=== PATIENT | female | born 1965 | race Caucasian/White ===

== ENCOUNTER 2025-04-18 18:38 | Emergency (ER) | payer BC, SELFPAY ==
[2025-04-18 18:41] VITALS: BP 168/119
[2025-04-18 19:05] LABS: % Basophils 0.4 % (0-2); % Eosinophils 1.2 % (0-6); % Immature Granulocytes 0.5 % (0-0.5); % Lymphocytes 13.8 % (20.5-51.1); % Monocytes 5.8 % (1.7-9.3); % Neutrophils 78.3 % (42.2-75.2); Absolute Basophils 0.1 10^3/uL (0-0.2); Absolute Eosinophils 0.1 10^3/uL (0-0.7); Absolute Immature Granulocytes 0.1 10^3/uL (0-0.05); Absolute Lymphocytes 1.6 10^3/uL (1.2-3.4); Absolute Monocytes 0.7 10^3/uL (0.1-0.6); Absolute Neutrophils 8.9 10^3/uL (1.4-6.5); Hematocrit 45.6 % (37.0-47.0); Hemoglobin 14.8 g/dL (12.0-16.0); Mean Corp Hgb Conc. 32.5 g/dL (33.0-37.0); Mean Corpuscular Hgb 28.1 pg (27.0-31.0); Mean Corpuscular Volume 86.5 fL (81.0-99.0); Mean Platelet Volume 9.7 fL (7.4-10.4); Nucleated Red Blood Cells % 0 %; Platelet Count 346 10^3/uL (130-400); Red Blood Cell Count 5.27 10^6/uL (4.20-5.40); White Blood Cell Count 11.3 10^3/uL (4.8-10.8)
[2025-04-18 19:18] LABS: COVID-19 Antigen Negative (Negative)
[2025-04-18 19:26] LABS: ALT (SGPT) 24 U/L (0-35); AST (SGOT) 22 U/L (14-36); Albumin 4.4 g/dl (3.5-5.0); Alkaline Phosphatase 116 U/L (38-126); Blood Urea Nitrogen 13 mg/dl (7-17); Carbon Dioxide 28 mmol/L (22-30); Chloride 103 mmol/L (98-107); Glucose 271 mg/dl (70-99); Potassium 3.9 mmol/L (3.5-5.1); Sodium 142 mmol/L (135-145); Total Bilirubin 0.5 mg/dl (0.2-1.3); Total Protein 7.4 g/dl (6.3-8.2); eGFR > 60.00
[2025-04-18 21:10] VITALS: BP 149/100
[2025-04-18 21:44] VITALS: BP 174/100
[2025-04-18 21:53] VITALS: BMI 29.1
[2025-04-18] MEDS: COZAAR 50 MG PO (22:42)
[2025-04-18] MEDS: TYLENOL 1000 MG PO (22:54)
[2025-04-18 23:00] VITALS: BP 170/98
[2025-04-18 23:09] LABS: TSH Reflex To Free T4 1.67 uIU/ml (0.47-4.68)
[2025-04-18] MEDS: AUGMENTIN 875 MG/125 MG 1 TABLET PO (23:36)
--- NOTE | 2025-04-19 00:06 | ED.GENMED ---
History of Present Illness
General
Chief Complaint: Blood Pressure Problem
Source: patient
Exam Limitations: none
Time Seen by Provider: 04/18/25 21:57
Nursing documentation reviewed up to this point in time: agreed with
History of Present Illness
History of Present Illness:
Patient to ED with complaint of cough, fatigue, headache. She was seen at 2 days ago and placed on zpack for her symtpoms but states med is not helping. SHe was also told her BP was elevated. She has a history of HtN but states she stopped all
her medications approx 3 mos ago because she was tired of taking her meds. Brought to ED by family for eval.
Past History
Past History
ED Past Medical History: GERD, HTN, Hypercholesterolemia and Hypothyroidism
ED Past Surgical History:
Social History
Tobacco: Smoker
Alcohol: None
Drug: None
Personal: Other ( )
Living: with family
Employment: Employed
Review of Systems
Review of Systems
Allergies reviewed?: Yes
All Other Systems: ROS reviewed and negative except as documented in HPI and ROS
Constitutional: Reports fatigue
EENT: Reports other (right ear pain)
Respiratory: Reports cough
Cardiac: Reports no symptoms
ABD/GI: Reports no symptoms
: Reports no symptoms
Musculoskeletal: Reports no symptoms
Skin: Reports no symptoms
Neurological: Reports no symptoms
Psychiatric: Reports no symptoms
Phy Exam
General Physical Exam
General Presentation: mild distress
General age: appears stated age
General Skin: warm and dry
General Habitus: normal
General Mental: alert
Cardiovascular Exam
Cardiovascular Exam: regular rate/rhythm and no edema
Pulmonary Exam
Pulmonary Exam: lungs clear and chest non tender
Gastrointestinal Exam
Gastrointestinal Exam: normal bowel sounds, non tender and soft
Musculoskeletal Exam
Musculoskeletal Exam: full ROM and neuro vasc intact
Skin Exam
Skin Exam: normal color, warm/dry and no rash
Psychiatric Exam
Psychiatric Exam: normal mood/affect
Course
Orders/Labs/Results
Orders:
Orders
04/18/25 18:43
Electrocardiogram (*1) Urgent
Reason for Study: Hypertension, Benign
EKG- Treatment ONCE
04/18/25 18:54
COVID-19 Antigen Urgent
Source: Nasal Swab
Complete Blood Count/With Diff Urgent
Comprehensive Metabolic Panel Urgent
TSH Reflex To Free T4 Urgent
Comment: ADD ON
Influenza A+B Rapid Molecular Urgent
MARYANA Source: Nasal Swab
Specimen Description:
04/18/25 22:04
Add On- LAB Urgent
Comments:: not taking ordered medication
Tests Added?: TSH with reflex to T4
04/18/25 22:07
Chest [CR Chest - 2 Views ] Urgent
Comment:
Reason For Exam: cough
04/18/25 22:30
Losartan [Cozaar] 50 mg PO NOW STA
04/18/25 22:48
Acetaminophen [Tylenol] 1,000 mg PO NOW STA
04/18/25 23:33
Amoxicillin 875 mg/Clav 125 mg [Augmentin 875 mg/125 mg] 1 tablet PO NOW STA
Abnormal Lab Results
04/18/25
18:54
WBC 11.3 H 10^3/uL
(4.8-10.8)
MCHC 32.5 L g/dL
(33.0-37.0)
Abs Immat Gran (auto) 0.1 H 10^3/uL
(0-0.05)
Absolute Neuts (auto) 8.9 H 10^3/uL
(1.4-6.5)
Absolute Monos (auto) 0.7 H 10^3/uL
(0.1-0.6)
Neutrophils % 78.3 H %
(42.2-75.2)
Lymphocytes % 13.8 L %
(20.5-51.1)
Glucose 271 H mg/dl
(70-99)
04/18/25 18:54
04/18/25 18:54
Vital Signs
Initial and Last Documented VS:
Initial Vital Signs
Temp Pulse Resp BP Pulse Ox
99.1 F 110 16 168/119 96
04/18/25 18:41 04/18/25 18:41 04/18/25 18:41 04/18/25 18:41 04/18/25 18:41
Last Documented Vital Signs
Temp Pulse Resp BP Pulse Ox
99.1 F 89 19 170/98 94
04/18/25 18:41 04/18/25 22:45 04/18/25 22:45 04/18/25 23:00 04/18/25 23:30
*Radiology
Radiology exam reviewed: preliminary read by ED provider (questionable LLL pneumonia)
*EKG
Interpretation: normal
Rate: normal
Rhythm: sinus
*Critical Care Note
Total Time (30-74mins, 75-104mins- exclusive of procedures): Not Applicable
ED Attending Note
-
Portions of this chart may have been created with voice recognition software.� Occasional wrong word or��sound alike� substitutions may have occurred due to the inherent limitations of voice recognition software.
Discharge Plan
Departure
Patient Disposition: Home (Routine Discharge)
Date of Disposition: 04/18/25
Time of Disposition: 23:29
Patient with high blood pressure during this ER visit?: No
Condition: Good
Covid-19: Not Applicable
Discharge Problem:
Pneumonia, Hypertension
Instructions: High Blood Pressure (DC), Pneumonia
Prescriptions:
New
amoxicillin-pot clavulanate 875-125 mg tablet
1 tab PO BID Qty: 20 0RF
doxycycline hyclate 100 mg capsule
100 mg PO BID Qty: 10 0RF
No Action
Cary
1 tab PO DAILY
Blood Pressure Med
1 tab PO DAILY
Patient Comments:
Pt. does not know the name of this med
Fish Oil
1 tab PO DAILY
Referrals:
[facility] [Outside]
NONE,* [Family Provider, Internal Medicine]
Stand Alone Forms: Return to Work
Interventions
Interventions:
*Risk Screen - Suicide Last Done: 04/18/25 18:42
*General Assessment Last Done: 04/18/25 21:54
*Neglect/Abuse Screening Last Done: 04/18/25 18:42
*ED- Fall Risk Assessment Last Done: 04/18/25 21:54
*ED COVID-19 Vaccine History Last Done: 04/18/25 21:54
*Nursing Disposition Last Done: 04/18/25 23:51
ED- Cardiac Assessment Last Done: 04/18/25 21:54
ED- Neurological Assessment Last Done: 04/18/25 21:54
ED- Pulmonary Assessment Last Done: 04/18/25 21:54
Discharge Date and Time
Discharge Date/Time: 04/18/25 23:52
Print Language: GERMAN
== END 2025-04-18 23:52 | disposition home or self-care (01) ==
LOC: EMR 18:38
PROVIDERS: Emergency Medicine; EMERGENCY PHYSICIAN Student in an Organized Health Care Education/Training Program
DX: J18.9 Pneumonia, unspecified organism (principal); I10 Essential (primary) hypertension; E03.9 Hypothyroidism, unspecified; E78.00 Pure hypercholesterolemia, unspecified; F17.200 Nicotine dependence, unspecified, uncomplicated; Z11.52 Encounter for screening for COVID-19
CPT/HCPCS: 99285; 71046; 80053; 84443; 85025; 87502; 87811; 93005

== ENCOUNTER 2025-04-22 19:26 | Emergency (ER) | payer BC, SELFPAY ==
[2025-04-22 19:37] VITALS: BP 128/86
[2025-04-22 19:50] LABS: % Basophils 0.5 % (0-2); % Eosinophils 1.6 % (0-6); % Immature Granulocytes 1.4 % (0-0.5); % Lymphocytes 19.6 % (20.5-51.1); % Monocytes 5.2 % (1.7-9.3); % Neutrophils 71.7 % (42.2-75.2); Absolute Basophils 0.1 10^3/uL (0-0.2); Absolute Eosinophils 0.2 10^3/uL (0-0.7); Absolute Immature Granulocytes 0.2 10^3/uL (0-0.05); Absolute Lymphocytes 2.4 10^3/uL (1.2-3.4); Absolute Monocytes 0.6 10^3/uL (0.1-0.6); Absolute Neutrophils 8.8 10^3/uL (1.4-6.5); Hematocrit 43.3 % (37.0-47.0); Mean Corp Hgb Conc. 34.6 g/dL (33.0-37.0); Mean Corpuscular Hgb 28.7 pg (27.0-31.0); Mean Platelet Volume 9.1 fL (7.4-10.4); Nucleated Red Blood Cells % 0 %; Platelet Count 447 10^3/uL (130-400); Red Blood Cell Count 5.22 10^6/uL (4.20-5.40); Red Cell Dist. Width 13.5 % (11.5-14.5); White Blood Cell Count 12.2 10^3/uL (4.8-10.8)
[2025-04-22 20:00] VITALS: BP 133/82
[2025-04-22 20:13] LABS: ALT (SGPT) 23 U/L (0-35); AST (SGOT) 23 U/L (14-36); Albumin 4.3 g/dl (3.5-5.0); Alkaline Phosphatase 104 U/L (38-126); Blood Urea Nitrogen 21 mg/dl (7-17); Calcium 9.7 mg/dl (8.4-10.2); Carbon Dioxide 23 mmol/L (22-30); Chloride 109 mmol/L (98-107); Glucose 143 mg/dl (70-99); Potassium 3.8 mmol/L (3.5-5.1); Sodium 142 mmol/L (135-145); Total Bilirubin 0.5 mg/dl (0.2-1.3); Total Protein 7.4 g/dl (6.3-8.2); eGFR 58.24
[2025-04-22 20:25] LABS: Troponin I < 0.012 ng/ml
[2025-04-22 21:00] VITALS: BP 125/79
[2025-04-22 22:00] VITALS: BP 122/89
[2025-04-22] MEDS: DECADRON 10 MG IV (22:12)
[2025-04-22] MEDS: DUONEB 3 ML INH (22:12)
[2025-04-22 23:00] VITALS: BP 130/88
[2025-04-22] MEDS: NSS 500 IV (23:16)
--- NOTE | 2025-04-22 23:35 | ED.GENMED ---
History of Present Illness
General
Chief Complaint: Breathing Problem
Source: patient
Exam Limitations: none
Time Seen by Provider: 04/22/25 20:28
Nursing documentation reviewed up to this point in time: agreed with
History of Present Illness
History of Present Illness:
60-year-old female past medical history of hypertension presenting to the emergency department today with concerns of ongoing shortness of breath despite taking 2 antibiotics. Has had some fatigue nausea lightheadedness.
Past History
Past History
ED Past Medical History: GERD, HTN, Hypercholesterolemia and Hypothyroidism
ED Past Surgical History:
Social History
Tobacco: Smoker
Alcohol: None
Drug: None
Personal: Other ( )
Living: with family
Employment: Employed
Review of Systems
Review of Systems
Allergies reviewed?: Yes
All Other Systems: ROS reviewed and negative except as documented in HPI and ROS
Phy Exam
Physical Exam
Physical Exam:
GENERAL: Alert , in no apparent distress
EYE: pupils equal and reactive
NECK: Supple, no significant adenopathy.
ENT: o/p clr, mmm.
CARDIAC: Regular rate and rhythm .
LUNGS: Expiratory wheeze diffusely
ABDOMEN: Soft, without focal tenderness, no r/g, no cvat
NEUROLOGICAL: Alert and oriented, no focal neuro deficits
SKIN: Warm and dry, skin intact.
MUSCULOSKELETAL: No edema, well perfused.
PSYCH: Normal and appropriate interaction.
Scores
Heart Failure Risk
Heart Failure Risk Score: Not Applicable
Course
Orders/Labs/Results
Orders:
Orders
04/22/25 19:39
EKG [Electrocardiogram (*1)] Urgent
Reason for Study: Shortness of Breath
CR Chest - 2 Views Urgent
Comment:
Reason For Exam: SOB
04/22/25 19:40
EKG- Treatment ONCE
04/22/25 19:42
Complete Blood Count/With Diff Urgent
Comprehensive Metabolic Panel Urgent
Troponin I Urgent
04/22/25 22:09
Dexamethasone Sod Phosphate [Decadron] 10 mg IV NOW STA
Ipratropium/Albuterol Sulfate [Duoneb] 3 ml INH R NOW ONE
04/22/25 23:16
0.9% Sodium Chloride 500 ml [Nss] 500 ml IV BOLUS
Abnormal Lab Results
04/22/25
19:42
WBC 12.2 H 10^3/uL
(4.8-10.8)
Plt Count 447 H D 10^3/uL
(130-400)
Abs Immat Gran (auto) 0.2 H 10^3/uL
(0-0.05)
Absolute Neuts (auto) 8.8 H 10^3/uL
(1.4-6.5)
Immature Gran % 1.4 H %
(0-0.5)
Lymphocytes % 19.6 L %
(20.5-51.1)
Chloride 109 H mmol/L
(98-107)
BUN 21 H mg/dl
(7-17)
Creatinine 1.1 H mg/dL
(0.6-1.0)
Glucose 143 H mg/dl
(70-99)
04/22/25 19:42
04/22/25 19:42
Vital Signs
Initial and Last Documented VS:
Initial Vital Signs
Temp Pulse Resp BP Pulse Ox
98.5 F 95 18 128/86 97
04/22/25 19:37 04/22/25 19:37 04/22/25 19:37 04/22/25 19:37 04/22/25 19:37
Last Documented Vital Signs
Temp Pulse Resp BP Pulse Ox
98.5 F 81 18 144/96 94
04/22/25 19:37 04/22/25 23:21 04/22/25 23:21 04/23/25 00:00 04/23/25 00:00
MDM/Problems Addressed
MDM/Problems Addressed:
60-year-old female presenting to the emergency department today with concerns of ongoing respiratory symptoms. Recently diagnosed with pneumonia 5 days ago has been taking the antibiotic without relief. Here she does have a slight expiratory
wheeze was given a DuoNeb as well as dexamethasone otherwise labs without emergent findings troponin negative chest x-ray without obvious pneumonia potential bronchitis. At this point patient generally well-appearing no distress stable for
outpatient management return precautions given.
*Critical Care Note
Total Time (30-74mins, 75-104mins- exclusive of procedures): Not Applicable
ED Attending Note
-
Portions of this chart may have been created with voice recognition software.� Occasional wrong word or��sound alike� substitutions may have occurred due to the inherent limitations of voice recognition software.
Discharge Plan
Departure
Patient Disposition: Home (Routine Discharge)
Date of Disposition: 04/23/25
Time of Disposition: 00:27
Patient with high blood pressure during this ER visit?: No
Condition: Good
Covid-19: Not Applicable
Discharge Problem:
Acute bronchitis
Instructions: Acute Bronchitis, Adult (DC)
Prescriptions:
New
prednisone 10 mg Tablet
See Rx Instructions .ROUTE .COMPLEX Qty: 30 0RF
Rx Instructions:
Take By Mouth:
40 mg daily x3 days, 30 mg daily x3 days,
20 mg daily x3 days, 10 mg daily x3 days.
albuterol sulfate [Ventolin HFA] 90 mcg/actuation HFA aerosol inhaler
2 puff inhalation Q6H PRN (Reason: shortness of breath or wheezing) Qty: 8.5 0RF
No Action
Cary
1 tab PO DAILY
Blood Pressure Med
1 tab PO DAILY
Patient Comments:
Pt. does not know the name of this med
Fish Oil
1 tab PO DAILY
amoxicillin-pot clavulanate 875-125 mg tablet
1 tab PO BID Qty: 20 0RF
doxycycline hyclate 100 mg capsule
100 mg PO BID Qty: 10 0RF
Referrals:
[facility] [Provider Group]
UNKNOWN - PT DOES,NOT KNOW [Family Provider]
Activity Restrictions/Additional Instructions:
You came to the emergency department today with concerns of ongoing respiratory symptoms. You were found to have some wheezing. Please take the prescribed steroid and follow-up close with the primary care doctor. Return for any worsening, new or
concerning symptoms.
Interventions
Interventions:
*Risk Screen - Suicide Last Done: 04/22/25 19:39
*General Assessment Last Done: 04/22/25 19:39
*Neglect/Abuse Screening Last Done: 04/22/25 19:39
*ED- Fall Risk Assessment Last Done: 04/22/25 23:20
*ED COVID-19 Vaccine History Last Done: 04/22/25 19:39
ED- Cardiac Assessment Last Done: 04/22/25 20:02
ED- Pulmonary Assessment Last Done: 04/22/25 20:02
Discharge Date and Time
Print Language: [place] ISLAND[place]
[2025-04-23] VITALS: BP 144/96
== END 2025-04-23 00:51 | disposition home or self-care (01) ==
LOC: EMR 19:26
PROVIDERS: Student in an Organized Health Care Education/Training Program; EMERGENCY PHYSICIAN Emergency Medicine
DX: J20.9 Acute bronchitis, unspecified (principal); R42 Dizziness and giddiness; R11.0 Nausea; J18.9 Pneumonia, unspecified organism; I10 Essential (primary) hypertension; E78.00 Pure hypercholesterolemia, unspecified; E03.9 Hypothyroidism, unspecified; K21.9 Gastro-esophageal reflux disease without esophagitis; F17.200 Nicotine dependence, unspecified, uncomplicated; Z88.2 Allergy status to sulfonamides
CPT/HCPCS: 99284; 96374; 96361; 94640; 71046; 80053; 84484; 85025; 93005